=== PATIENT | female | born 1985 | race Caucasian/White ===

== ENCOUNTER 2016-12-27 16:26 | Emergency (ER) | payer SELFPAY ==
[2016-12-27 18:57] LABS: Hematocrit 40 % (35-47); Hemoglobin 13.3 g/dl (12.0-16.0); Mean Corpuscular HGB Conc 34 g/dl (31-36); Mean Corpuscular Hemoglobin 30 pg (27-31); Mean Corpuscular Volume 88 fL (80-97); Mean Platelet Volume 8 um3 (7.4-10.4); Red Blood Count 4.51 10^6/ul (4.0-5.4); Red Cell Distribution Width 13 % (10.5-15); White Blood Count 8.4 10^3/ul (3.5-10.8)
[2016-12-27 19:12] LABS: Albumin 4.6 g/dL (3.2-5.2); BUN/Creatinine Ratio 12.7 (8-20); Calcium 9.4 mg/dL (8.6-10.3); EGFR African American 140.8 (>60); EGFR Non-African American 109.5 (>60); Globulin 2.8 g/dL (2-4); Potassium 3.7 mmol/L (3.5-5.0); Total Bilirubin 0.6 mg/dL (0.2-1.0); Total Protein 7.4 g/dL (6.4-8.9)
[2016-12-27] MEDS ORDERED: Iohexol 350* (CONTRAST) 500 ML MDV IV ONE (19:15)
--- NOTE | 2016-12-27 19:54 | RAD ---
INDICATION: Headaches COMPARISON: None TECHNIQUE: Noncontrast axial source images were acquired from the skull base to the vertex. FINDINGS: Ventricles/sulci: The ventricles and cisterns are normal in size and configuration for age. Brain parenchyma: There is no focal parenchymal finding, evidence of intracranial mass, or intracranial mass effect. Intracranial hemorrhage:None. Extra-axial spaces: There are no abnormal extra axial fluid collections or evidence of extra-axial mass. Calvarium: There is no calvarial fracture or other calvarial abnormality. Scalp: There is no evidence of scalp or extracalvarial soft tissue abnormality. Paranasal sinuses/mastoid: There is left paracentral sinus disease. There is no air-fluid level. The remaining paranasal sinuses and mastoid air cells are clear. Other: None. IMPRESSION: No intracranial abnormalities. Left maxillary sinusitis with air-fluid level
--- NOTE | 2016-12-27 20:09 | RAD ---
INDICATION: Headaches. Noncontrast CT examination shows acute left maxillary antral sinusitis. Evaluate for aneurysm. COMPARISON: Noncontrast CT brain same date TECHNIQUE: Axial source images were acquired with coronal and sagittal reconstructions. CT angiographic technique was utilized with injection of 80 mL Omnipaque 350. FINDINGS: Aortic arch: There are no CT angiogram abnormalities of the arch or the great vessels arising from the arch. Right carotid: The internal carotid artery, carotid bifurcation, extracranial portions of the internal carotid artery, carotid artery at the skull base, carotid siphon, and carotid termination appear normal. Left carotid:The internal carotid artery, carotid bifurcation, extracranial portions of the internal carotid artery, carotid artery at the skull base, carotid siphon, and carotid termination appear normal. Right middle and anterior cerebral arteries: There are no CT angiographic abnormalities of the middle or anterior cerebral arteries. Left middle and anterior cerebral arteries: There are no CT angiographic abnormalities of the middle or anterior cerebral arteries Right vertebral: The CT angiographic appearance of the vertebral artery is normal. Left vertebral: The CT angiographic appearance of the vertebral artery is normal. Basilar artery: The basilar artery and basilar tip appear normal. Posterior cerebral arteries: The distal distribution of the right and left posterior cerebral arteries is normal. There is an anatomic variant with origin of the posterior right cerebral artery. Ryan of [place]: The CT angiographic appearance of the mary's igloo of [place] is normal. Source images show no evidence of mass or adenopathy within the neck. There are no focal brain parenchymal abnormalities or abnormal areas of enhancement. IMPRESSION: NO CT ANGIOGRAPHIC ABNORMALITIES. CPT II Codes: 3100F PQRS
[2016-12-27] MEDS ORDERED: Ketorolac INJ* 30 MG/ML 1 ML VIAL IV PUSH ONE (21:05)
[2016-12-27] MEDS ORDERED: Cyclobenzaprine TAB* 10 MG PO ONE (21:05)
--- NOTE | 2016-12-27 21:09 | ED ---
Neck Pain - HPI Summary HPI Summary: 31F presents with sharp neck pain for 2 days. She states that pain in intermittent and starts at the back of her neck and radiates up to her head and down to her shoulders. She denies any chest pain or SOB. She has a strong family history of aneurysm. She denies that her headache is the worst of her life. She has taken ibuprofen for her pain. She denies any n/v. She denies any injury to the area. - History of Current Complaint Chief Complaint: EDNeckComplaint Stated Complaint: SHARP SHOULDER PAINS Time Seen by Provider: 12/27/16 18:25 Pain Intensity: 4 - Allergies/Home Medications Allergies/Adverse Reactions: Allergies Allergy/AdvReac Type Severity Reaction Status Date / Time No Known Allergies Allergy Verified 12/27/16 16:29 PMH/Surg Hx/FS Hx/Imm Hx Endocrine/Hematology History: Denies: Hx Diabetes Cardiovascular History: Denies: Hx Hypertension History: Denies: Hx Renal Disease Infectious Disease History: No Infectious Disease History: Denies: Traveled Outside the in Last 30 Days - Social History Alcohol Use: None Substance Use Type: Reports: None Smoking Status (MU): Never Smoked Tobacco Review of Systems Negative: Fever Negative: Chest Pain Negative: Shortness Of Breath Positive: Myalgia - neck pain All Other Systems Reviewed And Are Negative: Yes Physical Exam Triage Information Reviewed: Yes Vital Signs On Initial Exam: Initial Vitals Temp Pulse Resp BP Pulse Ox 97.8 F 68 18 128/81 100 12/27/16 16:30 12/27/16 16:30 12/27/16 16:30 12/27/16 16:30 12/27/16 16:30 Vital Signs Reviewed: Yes Appearance: Positive: Well-Appearing Skin: Positive: Warm, Dry Head/Face: Positive: Normal Head/Face Inspection Eyes: Positive: Normal, Conjunctiva Clear ENT: Positive: Normal ENT inspection, Pharynx normal, TMs normal Neck: Positive: Other: - tenderness on side of neck, Full ROM neck with pain Respiratory/Lung Sounds: Positive: Clear to Auscultation, Breath Sounds Present Cardiovascular: Positive: Normal, RRR Diagnostics - Vital Signs Vital Signs Temp Pulse Resp BP Pulse Ox 12/27/16 16:31 97.8 F 68 16 128/81 100 12/27/16 16:30 97.8 F 68 18 128/81 100 - Laboratory Lab Results: Lab Results 12/27/16 12/27/16 Range/Units 18:48 18:48 WBC 8.4 (3.5-10.8) 10^3/ul RBC 4.51 (4.0-5.4) 10^6/ul Hgb 13.3 (12.0-16.0) g/dl Hct 40 (35-47) % MCV 88 (80-97) fL MCH 30 (27-31) pg MCHC 34 (31-36) g/dl RDW 13 (10.5-15) % Plt Count 346 (150-450) 10^3/ul MPV 8 (7.4-10.4) um3 Neut % (Auto) 47.7 (38-83) % Lymph % (Auto) 41.5 (25-47) % Walsh % (Auto) 7.4 (1-9) % Eos % (Auto) 2.3 (0-6) % Baso % (Auto) 1.1 (0-2) % Absolute Neuts (auto) 4.0 (1.5-7.7) 10^3/ul Absolute Lymphs (auto) 3.5 (1.0-4.8) 10^3/ul Absolute Monos (auto) 0.6 (0-0.8) 10^3/ul Absolute Eos (auto) 0.2 (0-0.6) 10^3/ul Absolute Basos (auto) 0.1 (0-0.2) 10^3/ul Absolute Nucleated RBC 0.01 10^3/ul Nucleated RBC % 0.1 Sodium 135 (133-145) mmol/L Potassium 3.7 (3.5-5.0) mmol/L Chloride 104 (101-111) mmol/L Carbon Dioxide 25 (22-32) mmol/L Anion Gap 6 (2-11) mmol/L BUN 8 (6-24) mg/dL Creatinine 0.63 (0.51-0.95) mg/dL Est GFR ( Amer) 140.8 (>60) Est GFR (Non-Af Amer) 109.5 (>60) BUN/Creatinine Ratio 12.7 (8-20) Glucose 89 (70-100) mg/dL Calcium 9.4 (8.6-10.3) mg/dL Total Bilirubin 0.60 (0.2-1.0) mg/dL AST 19 (13-39) U/L ALT 12 (7-52) U/L Alkaline Phosphatase 51 (34-104) U/L Total Protein 7.4 (6.4-8.9) g/dL Albumin 4.6 (3.2-5.2) g/dL Globulin 2.8 (2-4) g/dL Albumin/Globulin Ratio 1.6 (1-3) Result Diagrams: 12/27/16 18:48 12/27/16 18:48 Lab Statement: Any lab studies that have been ordered have been reviewed, and results considered in the medical decision making process. - CT brain CT Interpretation: No Acute Changes CT Interpretation Completed By: Radiologist CTA CT Interpretation: No Acute Changes - IMPRESSION: NO CT ANGIOGRAPHIC ABNORMALITIES. CT Interpretation Completed By: Radiologist Neck Course/Dx - Course Course Of Treatment: 31F presents with sharp neck pain for 2 days. is intermittent and starts at the back of her neck and radiates up to her head and down to her shoulders. no chest pain or SOB. She has a strong family history of aneurysm. no injury to the area. normal neuro exam. got CTA to make sure not aneurysm and was normal. will treat as muscular with flexeril. patient understands and agrees with plan - Diagnoses Differential Dx/HQI/PQRI: Positive: Intracranial Bleed, Sprain, Strain, Vertebral Artery Aneurysm Provider Diagnoses: Neck pain Discharge - Discharge Plan Condition: Good Disposition: HOME Prescriptions: Cyclobenzaprine TAB* [Flexeril 10 MG TAB*] 10 mg PO TID PRN #9 tab PRN Reason: Pain Patient Education Materials: Neck Pain (ED) Referrals: Non Staff,Doctor [Primary Care Provider] - Additional Instructions: Take muscle relaxers three times a day for 3 days Use ibuprofen or Tylenol for pain every 6 hours ice/heat area, move as much as possible Follow up with primary within 5 days Return to ED if develop any new or worsening symptoms
[2016-12-27 21:53] VITALS: BP 132/67
== END 2016-12-27 21:54 | disposition home or self-care (01) ==
LOC: ED 16:26
DX: M54.2 Cervicalgia (principal)
CPT/HCPCS: 36415; 70450; 70496; 70498; 80053; 85025; 96374; 99282; A9270-GY; J1885; Q9967